=== PATIENT | female | born 1990 | race Two or more races ===

== ENCOUNTER 2016-05-05 08:29 | Emergency (ER) | payer BC ==
[2016-05-05] MEDS ORDERED: ONDANSETRON 4 MG ODT TAB ONE (09:19)
--- NOTE | 2016-05-05 10:18 | RAD ---
CHEST - 2 VIEWS COMPARISON: None. HISTORY: Cough and fever FINDINGS: Views: Frontal and lateral chest Lungs: Normal Heart and vessels: Normal Trachea and bronchi: Normal Mediastinum and tejal: Normal Costophrenic sulci: Normal Chest wall and bones: Normal. Upper abdomen: Normal. IMPRESSION: Negative 2 view chest.
[2016-05-05 10:34] LABS: HCG,QUALITATIVE URINE NEGATIVE; URINE BILIRUBIN NEGATIVE (NEGATIVE); URINE BLOOD NEGATIVE (NEGATIVE); URINE GLUCOSE (UA) NEGATIVE (NEGATIVE); URINE LEUKOCYTE ESTERASE NEGATIVE (NEGATIVE); URINE NITRITE NEGATIVE (NEGATIVE); URINE PROTEIN NEGATIVE (NEGATIVE); URINE UROBILINOGEN NORMAL (0-1 mg/dl)
[2016-05-05 10:35] LABS: URINE APPEARANCE CLEAR; URINE COLOR YELLOW
== END 2016-05-05 11:01 | disposition home or self-care (01) ==
LOC: ED 08:29
DX: J11.1 Influenza due to unidentified influenza virus with other respiratory manifestations (principal); R50.9 Fever, unspecified
CPT/HCPCS: 81025; 81003; 87880; 71020; 87804; 99283 ×2; A9270